=== PATIENT | male | born 1975 | race Hispanic/Latino ===

== ENCOUNTER 2020-07-06 14:30 | Emergency (ER) | payer OTHER, SELFPAY ==
[2020-07-06 14:55] VITALS: BP 171/103; PULSE 80; RESP 16; TEMP 36.6; O2SAT 98
[2020-07-06 15:10] VITALS: BP 154/98
--- NOTE | 2020-07-06 15:10 | ED.GENADULT ---
HPI - General Adult General Chief complaint: Unspecified Stated complaint: needs bp meds filled its running high Time Seen by Provider: 07/06/20 15:10 Source: patient and RN notes reviewed Mode of arrival: ambulatory Limitations: no limitations History of Present Illness HPI narrative: 45-year-old male presents with complaints of elevated blood pressure since being out Lisinopril 10mg daily and Metoprolol Succinate 25mg daily for the past 3 days. Dre reports increasing symptoms over the last 24 hours with increase blood pressure readings. Denies fatigue, numbness or tingling in extremities, dizziness, headache, blurred vision, or other vision disturbance. History of [place], cardiac stent placement, and smoker. Denies polyuria, nocturia, rapid heart beat, dizziness, lightheadedness, and alter mental status. Denies fever or chills. Denies nausea, vomiting, and abdominal pain. Tolerating po intake well. Denies chest pain or shortness of breath. The patient reports he have not been diagnosed with COVID-19. The patient reports he is not waiting for the results of a COVID-19 lab test. The patient reports he do not have weakness or fatigue. The patient reports he do not have a new or worsening cough or shortness of breath. The patient reports he do not have any rhinorrhea, congestion, sore throat, loss of taste, or diarrhea. Denies recent traveling. Denies concerns for COVID-19 or exposures been home with limited outdoor exposure except for essential household needs, work, and return home. At this time, patient is not suspected of having COVID-19. Some parts of this dictation were generated by voice recognition software and may contain typographical and/or grammatical inaccuracies. Related Data Home Medications Medication Instructions Recorded Confirmed aspirin 07/06/20 atorvastatin 07/06/20 lisinopril 07/06/20 metoprolol succinate PO 07/06/20 Allergies Allergy/AdvReac Type Severity Reaction Status Date / Time No Known Allergies Allergy Verified 07/06/20 14:57 Review of Systems Review of Systems: Narrative: CONSTITUTIONAL: Denies fever, chills, sweats. EYES: Denies visual changes, redness, discharge. ENT: Denies rhinorrhea, congestion, sore throat, otalgia. CARDIOVASCULAR: Denies chest pain, palpitations, edema. Complains of elevated blood pressure. RESPIRATORY: Denies dyspnea, wheezing, cough. GASTROINTESTINAL: Denies abdominal pain, nausea, vomiting, or diarrhea. GENITOURINARY: Denies dysuria, hematuria, abnormal discharge. SKIN: Denies rash or itching. MUSCULOSKELETAL: Denies acute back pain, joint pain, or myalgia. NEUROLOGIC: Denies numbness or focal weakness. PSYCHIATRIC: Denies anxiety or depression. All systems reviewed & are unremarkable except as noted in HPI and below. [facility] Past Medical History Medical History (Updated 07/07/20 @ 00:00 by Justyn Rivas) Hypertension Myocardial infarct Nerve damage Right side Surgical History Surgical History (Updated 07/06/20 @ 15:55 by TODD Perez) History of coronary artery stent placement 2017 History of fusion of cervical spine Family History Family History (Updated 07/06/20 @ 15:56 by TODD Perez) Father Liver cancer Mother , Related to sepsis after back surgery Hypertension Diabetes mellitus Obese Social History Social History (Updated 07/06/20 @ 15:57 by TODD Perez) Smoking packs per day: 1 Smoking cigarettes per day: 20.0 Years smoked: 25 Smoking pack-years: 25.00 Smoking status: Current every day smoker Tobacco type: cigarettes Second hand tobacco smoke exposure: Yes (Spouse) Substance use: current Substance use type: marijuana Living arrangements: with family Occupation/Education: occupation Gender identity (if verbalized by the patient): Male Sexual Orientation (if Verbalized by the Patient): Straight or Heterosexual Commen
== END 2020-07-06 16:03 | disposition home or self-care (01) ==
PROVIDERS: Emergency Provider Nurse Practitioner Family
DX: Z76.0 Encounter for issue of repeat prescription (principal); I10 Essential (primary) hypertension; F17.210 Nicotine dependence, cigarettes, uncomplicated; I25.2 Old myocardial infarction; I25.10 Atherosclerotic heart disease of native coronary artery without angina pectoris; Z95.5 Presence of coronary angioplasty implant and graft
CPT/HCPCS: 99202; G0463

== ENCOUNTER 2021-02-19 11:32 | Emergency (ER) | payer OTHER, SELFPAY ==
[2021-02-19 12:17] VITALS: BP 148/93; PULSE 73; RESP 14; TEMP 36.6; O2SAT 100
--- NOTE | 2021-02-19 12:35 | ED.GENADULT ---
HPI - General Adult General Chief complaint: Animal Bite Stated complaint: dog bite left hand History of Present Illness HPI narrative: This a 45-year-old male that was playing with his dog and trying to get this new toy when he went to go pulled a toy the dog accidentally punctured his hand with his teeth the man owns the dog he does not know when he had his last tetanus Related Data Home Medications Medication Instructions Recorded Confirmed aspirin 81 mg PO DAILY 07/06/20 02/19/21 Allergies Allergy/AdvReac Type Severity Reaction Status Date / Time No Known Allergies Allergy Verified 07/06/20 14:57 Review of Systems Review of Systems: Left hand dog bite All systems reviewed & are unremarkable except as noted in HPI and below PMFSH Past Medical History Medical History (Updated 02/19/21 @ 12:40 by Roseanna Espinoza NP) Hypertension Myocardial infarct Nerve damage Right side Surgical History Surgical History (Updated 07/06/20 @ 15:55 by TODD Perez) History of coronary artery stent placement 2017 History of fusion of cervical spine Family History Family History (Updated 07/06/20 @ 15:56 by TODD Perez) Father Liver cancer Mother , Related to sepsis after back surgery Hypertension Diabetes mellitus Obese Social History Social History (Updated 07/06/20 @ 15:57 by TODD Perez) Smoking packs per day: 1 Smoking cigarettes per day: 20.0 Years smoked: 25 Smoking pack-years: 25.00 Smoking status: Current every day smoker Tobacco type: cigarettes Second hand tobacco smoke exposure: Yes (Spouse) Substance use: current Substance use type: marijuana Gender identity (if verbalized by the patient): Male Sexual Orientation (if Verbalized by the Patient): Straight or Heterosexual Comments At time as signature, I have reviewed and agree with nursing past medical, social, surgical and family history. Please see nursing chart for further information. There is no relevant family history pertinent to the presenting complaint. Exam Narrative: GENERAL:Well-appearing, well-nourished, and in no acute distress. HEAD:Normocephalic,. EYES: PERRLA ENT: Nares clear, no rhinorrhea or epistaxis. Mucous membranes moist. CHEST: No respiratory distress. HEART: Regular rate and rhythm. Normal peripheral pulses. EXTREMITIES: Normal range of motion. No edema. Left hand 4 puncture warner bleeding controlled SKIN: Warm, dry, no rash. NEURO: No focal deficits. Alert and oriented x3. Course Course Emergency Course: Tetanus shot to be given Vital Signs Vital signs: Vital Signs Temperature 98 F 02/19/21 12:17 Pulse Rate 73 02/19/21 12:17 Respiratory Rate 14 02/19/21 12:17 Blood Pressure 148/93 H 02/19/21 12:17 Pulse Oximetry 100 02/19/21 12:17 Temperature 98 F 02/19/21 12:17 Pulse Rate 73 02/19/21 12:17 Respiratory Rate 14 02/19/21 12:17 Blood Pressure 148/93 H 02/19/21 12:17 Pulse Oximetry 100 02/19/21 12:17 Medical Decision Making Vital Signs Vital Signs: Vital Signs Temperature 98 F 02/19/21 12:17 Pulse Rate 73 02/19/21 12:17 Respiratory Rate 14 02/19/21 12:17 Blood Pressure 148/93 H 02/19/21 12:17 Pulse Oximetry 100 02/19/21 12:17 Temperature 98 F 02/19/21 12:17 Pulse Rate 73 02/19/21 12:17 Respiratory Rate 14 02/19/21 12:17 Blood Pressure 148/93 H 02/19/21 12:17 Pulse Oximetry 100 02/19/21 12:17 Discharge Plan Discharge Clinical Impression: Dog bite Qualifiers: Encounter type: initial encounter Qualified Code(s): W54.0XXA - Bitten by dog, initial encounter Patient Disposition: Home, Self-Care Condition: Stable Instructions: Antibiotic Form, Animal Bite (ED) Additional Instructions: Use skin creams/lotion, such as those containing calamine or pramoxine to reduce itchiness Avoid scratching when possible to prevent worsening of t
[2021-02-19] MEDS: TETANUS,DIPHTHERIA,AC PERTUSSIS ADULT (0.5 ML) BOOSTRIX IM (12:44)
== END 2021-02-19 13:12 | disposition home or self-care (01) ==
PROVIDERS: Emergency Provider Nurse Practitioner Family
DX: S61.432A Puncture wound without foreign body of left hand, initial encounter (principal); W54.0XXA Bitten by dog, initial encounter; Y93.9 Activity, unspecified; Z23 Encounter for immunization; I10 Essential (primary) hypertension; I25.2 Old myocardial infarction; I25.10 Atherosclerotic heart disease of native coronary artery without angina pectoris; Z95.5 Presence of coronary angioplasty implant and graft
CPT/HCPCS: 90471; 90715; 99213; G0463